=== PATIENT | male | born 1975 | race Caucasian/White ===

== ENCOUNTER → 2016-12-14 | Outpatient (CLI) | payer BC ==
--- NOTE | 2016-12-14 08:10 | US ---
EXAMINATION TYPE: US abdomen complete DATE OF EXAM: 12/14/2016 COMPARISON: CT 2014 CLINICAL HISTORY: Abn Liver Function R94.5. EXAM MEASUREMENTS: Liver Length: 17.4 cm Gallbladder Wall: 0.3 cm CBD: 0.4 cm Spleen: 16.5 cm Right Kidney: 12.7 x 5.0 x 5.5 cm Left Kidney: 12.1 x 5.8 x 6.2 cm Pancreas: not visualized due to midline bowel gas Liver: measures 17.4 cm, hypoechoic area near gallbladder, probable fatty sparing Gallbladder: No stones seen Evidence for sonographic Horne's sign: No CBD: wnl Spleen: enlarged at 16.5 cm Right Kidney: No hydronephrosis or masses seen Left Kidney: No hydronephrosis or masses seen Upper IVC: wnl Abd Aorta: wnl IMPRESSION: 1. Mild to moderate fatty infiltration liver. 2. Exam limited due to bowel gas. 3. Focal area of diminished signal near the gallbladder bed fossa. Consider CT abdomen pelvis for com parison of this area was likely present on a comparison CT of 11/21/2014. 4. Splenomegaly
== END | disposition home or self-care (01) ==
LOC: RADUSWWP 06:36
PROVIDERS: ATTEND Internal Medicine
DX: K76.0 Fatty (change of) liver, not elsewhere classified (principal); R16.1 Splenomegaly, not elsewhere classified; R94.5 Abnormal results of liver function studies
CPT/HCPCS: 76700; 80074

== ENCOUNTER → 2016-12-31 | Outpatient (CLI) | payer BC ==
[2016-12-31 11:26] LABS: CH 31.6; CHCM 33.3; HCT 53.4 % (39.0-53.0); HDW 2.26; HGB 16.8 gm/dL (13.0-17.5); MCH 30.1 pg (25.0-35.0); MCHC 31.6 g/dL (31.0-37.0); MCV 95.5 fL (80.0-100.0); Mean Platelet Volume 7.7; RBC 5.59 m/uL (4.30-5.90); RDW 13.8 % (11.5-15.5); WBC 4.6 k/uL (3.8-10.6)
[2016-12-31 11:46] LABS: Bilirubin, Delta 0.2 mg/dL (0.0-0.2); Total Bilirubin 0.5 mg/dL (0.2-1.3); Total Protein 7.6 g/dL (6.3-8.2)
[2016-12-31 11:51] LABS: INR 1.1 (<1.2)
[2016-12-31 19:56] LABS: Iron Saturation 23.38 (15.00-50.00); Iron(FE) 76 ug/dL (65-175); Total Iron Binding Capacity 325 ug/dL (228-460)
[2016-12-31 19:59] LABS: ANA w/Reflex to Titer NEGATIVE (NEGATIVE)
== END | disposition home or self-care (01) ==
LOC: LABWHC1 10:57
PROVIDERS: ATTEND Physician Assistant
DX: R94.5 Abnormal results of liver function studies (principal)
CPT/HCPCS: 36415; 80076; 82103; 82390; 82728; 83516; 83540; 83550; 84165; 85027; 85610; 86038

== ENCOUNTER → 2017-08-24 | Outpatient (CLI) | payer BC ==
[2017-08-24 08:00] LABS: HCT 48.9 % (39.0-53.0); HGB 16.5 gm/dL (13.0-17.5); MCH 30.8 pg (25.0-35.0); MCHC 33.7 g/dL (31.0-37.0); MCV 91.2 fL (80.0-100.0); Mean Platelet Volume 7.4; Platelet Count 193 k/uL (150-450); RBC 5.36 m/uL (4.30-5.90); RDW 12.9 % (11.5-15.5); WBC 5.4 k/uL (3.8-10.6)
[2017-08-24 08:48] LABS: Albumin 4.5 g/dL (3.5-5.0); Bilirubin, Delta 0.2 mg/dL (0.0-0.2); Bilirubin,Unconjugated 0.5 mg/dL (0.0-1.1); Total Bilirubin 0.7 mg/dL (0.2-1.3); Total Protein 6.7 g/dL (6.3-8.2)
== END | disposition home or self-care (01) ==
LOC: LABWHC1 06:55
PROVIDERS: ATTEND Physician Assistant
DX: R74.8 Abnormal levels of other serum enzymes (principal)
CPT/HCPCS: 36415; 80076; 85027